=== PATIENT | male | born 1985 | race Caucasian/White ===

== ENCOUNTER 2018-03-11 20:55 | Emergency (ER) | payer BC, SELFPAY ==
[2018-03-11] MEDS ORDERED: Adacel (T-DAP) 0.5 ML VIAL ONE (22:13)
[2018-03-11] MEDS ORDERED: HYDROcodone/Acetaminophen 5/325 mg Tablet ONE (22:13)
[2018-03-11] MEDS ORDERED: Rabies Vaccine Human 2.5 UNITS VIAL IM ONE (22:15)
[2018-03-11] MEDS ORDERED: Ampicillin/Sulbactam 3 GM VIAL IM SCH (22:30)
[2018-03-11] MEDS ORDERED: Lidocaine 1% (PF) 30 ML VIAL ONE (22:32)
== END 2018-03-11 23:23 | disposition home or self-care (01) ==
LOC: ERS 20:55
DX: S61.451A Open bite of right hand, initial encounter (principal); L03.113 Cellulitis of right upper limb; F17.210 Nicotine dependence, cigarettes, uncomplicated; Z23 Encounter for immunization; W54.0XXA Bitten by dog, initial encounter
CPT/HCPCS: 90375; 90471; 90675; 90715; 96372; J0295; J2001

== ENCOUNTER 2022-11-03 10:43 | Outpatient (CLI) | payer BC | END 2022-11-03 10:44 | disposition home or self-care (01) | LOC: BICRAD 10:43 | PROVIDERS: ATTEND Nurse Practitioner Family | DX: S69.91XD Unspecified injury of right wrist, hand and finger(s), subsequent encounter (principal); M25.562 Pain in left knee; M25.561 Pain in right knee; M54.6 Pain in thoracic spine; M54.2 Cervicalgia | CPT/HCPCS: 72050; 72072 ==

== ENCOUNTER 2024-03-20 16:22 | Outpatient (CLI) | payer BC | END 2024-03-20 16:23 | disposition home or self-care (01) | LOC: SCSRAD 16:22 | PROVIDERS: ATTEND Family Medicine | DX: J18.9 Pneumonia, unspecified organism (principal) | CPT/HCPCS: 71046 ==